=== PATIENT | female | born 1960 | race Caucasian/White ===

== ENCOUNTER 2023-08-12 12:52 | Outpatient (CLI) | payer OTHER, SELFPAY ==
[2023-08-12 14:04] LABS: Estmated Average Glucose 105; Hemoglobin A1C 5.3 % (4.0-6.0)
[2023-08-12 14:37] LABS: Alanine Aminotransferase 8 U/L (0-33); Albumin Level 3.2 g/dL (3.5-5.2); Alkaline Phosphatase 80 U/L (35-105); Anion Gap 13.8 (5-19); Aspartate Amino Transferase 24 U/L (0-32); Blood Urea Nitrogen 8 mg/dL (8-23); C Reactive Protein 28.7 mg/L (0.0-4.9); Carbon Dioxide 27 mmol/L (22-29); Chloride 99 mmol/L (98-107); Globulin 4.5 g/dL (1.3-4.6); Glomerular Filtration Rate 101.6 mL/min (90-130); Glucose 85 mg/dL (65-115); Osmolality Calculated 280 mOsm/kg (285-295); Potassium 3.8 mmol/L (3.5-5.1); Sodium 136 mmol/L (136-145); Thyroid Stimulating Hormone 3.07 uIU/mL (0.27-4.20); Total Bilirubin 0.4 mg/dL (0.15-1.2); Total Protein 7.7 g/dL (6.6-8.7); Uric Acid 3.5 mg/dL (2.4-5.7)
[2023-08-13 07:27] LABS: Basophils % 0.4 %; Eosinophils # 0.1 10^3/uL (0.0-0.8); Eosinophils % 1.4 %; Hematocrit 41.7 % (36-47); Lymphocytes # 1.3 10^3/uL (0.8-4.8); Lymphocytes % 12.8 %; Mean Corpuscular HGB Conc 32.4 g/dL (30-55); Mean Corpuscular Volume 86.3 fl (85-98); Mean Platelet Volume 11.1 fL (7.4-10.4); Monocytes # 0.3 10^3/uL (0.2-0.9); Neutrophils % 81.1 %; Nucleated Red Blood Cells % 0 %; Platelet Count 375 10^3/cmm (157-399); Red Blood Count 4.83 10^6/uL (3.85-5.65); Red Cell Distribution Width 13.2 % (12.1-15.1)
[2023-08-13 07:47] LABS: Erythrocyte Sedimentation Rate 85 mm/hr (0-15)
[2023-08-13 13:10] LABS: Lyme AB Screen <0.90 index
[2023-08-13 14:00] LABS: CENTROMERE B ANTIBODY <1.0 NEG AI (<1.0 NEG); JO-1 ANTIBODY <1.0 NEG AI (<1.0 NEG); RNP ANTIBODY <1.0 NEG AI (<1.0 NEG); SCL-70 ANTIBODY <1.0 NEG AI (<1.0 NEG); SJOGREN'S ANTIBODY (SS-A) <1.0 NEG AI (<1.0 NEG); SM ANTIBODY <1.0 NEG AI (<1.0 NEG); SS-B <1.0 NEG AI (<1.0 NEG)
[2023-08-16 10:35] LABS: COMPLEMENT COMPONENT C3C 129 mg/dL (83-193); COMPLEMENT COMPONENT C4C 24 mg/dL (15-57)
[2023-08-16 12:19] LABS: ANA PATTERN Nuclear, Homogeneous; ANA SCREEN, IFA POSITIVE (NEGATIVE); Anti-Nuclear AB Pattern #2 Nuclear, Speckled
[2023-08-16 12:34] LABS: THYROID PEROXIDASE ANTIBODIES 2 IU/mL (<9)
[2023-08-16 12:45] LABS: COMPLEMENT, TOTAL (CH50) 50 U/mL (31-60)
[2023-08-17 16:49] LABS: E. Chaffeensis AB IGG <1:64; E. Chaffeensis AB IGM <1:20
[2023-08-18 20:53] LABS: RMSF IGG NOT DETECTED; RMSF IGM NOT DETECTED
[2023-08-20 13:30] LABS: DNA AB (DS) CRITHIDIA TITER 1:10 titer (<1:10); DNA AB (DS) CRITHIDIA,IFA POSITIVE (NEGATIVE)
== END 2023-08-12 12:53 | disposition home or self-care (01) ==
PROVIDERS: PCP Family Medicine Adult Medicine; Visit Provider Family Medicine Adult Medicine
DX: R63.4 Abnormal weight loss (principal); G62.9 Polyneuropathy, unspecified; G89.29 Other chronic pain; R35.89 Other polyuria; R63.1 Polydipsia; R06.02 Shortness of breath
CPT/HCPCS: 36415; 80053; 83036; 84443; 84550; 85025; 85651; 86140; 86160; 86162; 86235; 86255; 86376; 86431; 86618; 86666; 86757; 86812

== ENCOUNTER 2023-12-13 11:44 | Outpatient (CLI) | payer OTHER, SELFPAY ==
--- NOTE | 2023-12-13 12:00 | CT_ITS ---
WS: [id number] LDCT LUNG CANCER SCREENING TECHNIQUE: Noncontrast CT of the chest with coronal and sagittal reformatted images. CLINICAL INFORMATION: lung screen COMPARISON: None. DLP: 51.02 mGy.cm DIvol: Mean CTDIvol: 1.10 (mGy) All CT scans at [facility] use at least one of these dose optimization techniques: automat ed exposure control; mA and/or kV adjustment per patient size (includes targeted exams where dose is matched to clinical indication); or iterative reconstruction. FINDINGS: Tiny noncalcified 3 mm nodule LEFT upper lobe. Tiny nodule in the RIGHT fissure. Mild dilatation ascending thoracic aorta measuring 3.5 cm. Normal caliber descending thoracic aorta. Tiny esophageal hiatal hernia. Slightly prominent bilateral axillary lymph nodes the largest measurin g 9-10 mm nonspecific but may be reactive. A few normal sized mediastinal and parabronchial lymph nod es. Chronic LEFT rib fractures with callus formation. Small bilateral pleural effusions. Subsegmental atelectasis in the LEFT lower lobe lingula and RIGHT middle lobe. CT/CT lung screening [id number] IMPRESSION: Small bilateral pleural effusions. Prominent bilateral axillary lymph nodes nonspecific but may be reactive. Recom mend correlation with clinical history. LUNG-RADS: 2S-Benign Appearance or Behavior with Significant Findings FOLLOW UP: 12 Month: Continue annual screening with LDCT
== END 2023-12-13 11:45 | disposition home or self-care (01) ==
LOC: RAD 11:45
PROVIDERS: PCP Family Medicine Adult Medicine; Visit Provider Family Medicine Adult Medicine
DX: Z12.2 Encounter for screening for malignant neoplasm of respiratory organs (principal); K21.9 Gastro-esophageal reflux disease without esophagitis; J43.1 Panlobular emphysema; I77.810 Thoracic aortic ectasia; J90 Pleural effusion, not elsewhere classified; R91.8 Other nonspecific abnormal finding of lung field
CPT/HCPCS: 71271